=== PATIENT | female | born 1985 | race Caucasian/White ===

== ENCOUNTER 2020-09-07 18:47 | Emergency (ER) | payer BC ==
[2020-09-07 19:12] VITALS: TEMP 98.4; BMI 29.0
[2020-09-07] MEDS ORDERED: SODIUM CHLORIDE 1,000 ML IV STA (19:59)
[2020-09-07] MEDS ORDERED: ACETAMINOPHEN 1000 MG/100 ML VIAL (NON FORMULARY) IVPB ONE (20:01)
[2020-09-07] MEDS ORDERED: ACETAMINOPHEN INJECTION 100 ML IVPB ONE (20:40)
[2020-09-07 21:12] LABS: BASO % 0.4 % (0-2.0); EOS % 0.8 % (0-4.5); HEMATOCRIT 39.2 % (32.4-45.2); HEMOGLOBIN 13.1 GM/dL (10.7-15.3); MCH 30.8 pg (25.7-33.7); MCHC 33.5 g/dl (32.0-36.0); MEAN CELL VOLUME 91.9 fl (80-96); MEAN PLT VOLUME 8.8 fl (7.5-11.1); MONO % 4.6 % (3.8-10.2); NEUT % 68.2 % (42.8-82.8); PLATELET COUNT 278 K/MM3 (134-434); RBC 4.26 M/mm3 (3.60-5.2); RDW 13.7 % (11.6-15.6); WHITE BLOOD COUNT 9.9 K/mm3 (4.0-10.0)
[2020-09-07 21:23] LABS: ALBUMIN 4.4 g/dl (3.4-5.0); BLOOD UREA NITROGEN 16.2 mg/dL (7-18); CALCIUM 9.4 mg/dL (8.5-10.1)
[2020-09-07 21:27] LABS: CREATININE 0.9 mg/dL (0.55-1.3)
[2020-09-07 21:28] LABS: BILIRUBIN,TOTAL 0.4 mg/dL (0.2-1); TOT PROT 8.2 g/dl (6.4-8.2)
[2020-09-07 22:32] VITALS: BP 112/89; PULSE 77
== END 2020-09-07 22:32 | disposition home or self-care (01) ==
LOC: JER 18:47
PROC: 3E033NZ Introduction of Analgesics, Hypnotics, Sedatives into Peripheral Vein, Percutaneous Approach (ICD-10-PCS; principal; 2020-09-07)
PROC: 3E0337Z Introduction of Electrolytic and Water Balance Substance into Peripheral Vein, Percutaneous Approach (ICD-10-PCS; 2020-09-07)
DX: R51.9 Headache, unspecified (principal)
CPT/HCPCS: 36415; 70450-TC; 80053; 84703; 85025; 99285-25; C9803; J0131; U0003